=== PATIENT | female | born 1960 ===

== ENCOUNTER 2017-10-09 10:34 | Emergency (ER) | payer MEDICAID ==
[2017-10-09 11:03] VITALS: BP 150/86; PULSE 88; RESP 20; TEMP 98.1; O2SAT 98
[2017-10-09] MEDS ORDERED: Lidocaine 5% Patch TD STA (11:27)
[2017-10-09] MEDS ORDERED: Lidocaine 5% Patch TD ONE (11:46)
--- NOTE | 2017-10-09 12:14 | RAD ---
PROCEDURE: Lumbar spine 10/09/2017 HISTORY: Atraumatic back pain radiating to left leg COMPARISON: No prior study available comparison. FINDINGS: BONES: No acute compression fractures nor retropulsed fragments. Vertebral bodies exhibit normal stature. There is minimal subclinical dextroscoliosis Vertebral bodies otherwise exhibit normal alignment DISC SPACES: . There is disc space narrowing and vacuum disc phenomena L5-S1 level. Mild endplate eburnation with small marginal anterior osteophyte formation. Small marginal anterior osteophytes are seen at the L3-L4 and to a lesser degree L4-L5 levels. . Facet joints are slightly hypertrophic L5-S1 through the L3-L4 levels in decreasing order of severity and OTHER FINDINGS: None. IMPRESSION: No acute fractures. Degenerative spondylosis L5-S1 level to a lesser degree on L4 L 5 and L3-L4 levels as detailed above.
--- NOTE | 2017-10-09 12:40 | C.PDOC ---
History Of Present Illness 56 y/o female presents to the ER complaining of lower back pain which has been present for the past 3 weeks. Patient states that the pain radiates down the left leg. Patient reports that she was cleaning her house and she may have overworked herself. Patient denies having abdominal pain, hematuria, and dysuria. Time Seen by Provider: 10/09/17 11:14 Chief Complaint (Nursing): Back Pain History Per: Patient History/Exam Limitations: no limitations Onset/Duration Of Symptoms: Days Current Symptoms Are (Timing): Still Present Severity: Moderate Past Medical History Reviewed: Historical Data, Nursing Documentation, Vital Signs Vital Signs: Last Vital Signs Temp 98.1 F 10/09/17 10:58 Pulse 88 10/09/17 10:58 Resp 20 10/09/17 10:58 BP 150/86 10/09/17 10:58 Pulse Ox 98 10/09/17 12:56 - Medical History PMH: HTN, Hypercholesterolemia Other Surgeries: Hx of surgeries Family History: States: No Known Family Hx - Social History Hx Alcohol Use: Yes Hx Substance Use: No - Immunization History Hx Tetanus Toxoid Vaccination: No Hx Influenza Vaccination: Yes Hx Pneumococcal Vaccination: No Review Of Systems Except As Marked, All Systems Reviewed And Found Negative. Gastrointestinal: Negative for: Abdominal Pain Genitourinary: Negative for: Dysuria, Hematuria Musculoskeletal: Positive for: Back Pain (lower back pain) Physical Exam - Physical Exam Appears: Non-toxic, No Acute Distress Skin: Normal Color, Warm, Dry Head: Atraumatic, Normacephalic Eye(s): bilateral: Normal Inspection Nose: Normal Oral Mucosa: Moist Neck: Supple Chest: Symmetrical Cardiovascular: Rhythm Regular Respiratory: Normal Breath Sounds, No Rales, No Rhonchi, No Wheezing Back: Paraspinal Tenderness Neurological/Psych: Oriented x3, Normal Speech ED Course And Treatment O2 Sat by Pulse Oximetry: 98 (RA) Pulse Ox Interpretation: Normal - Other Rad X-Ray- Lumbar Spine X-Ray: Viewed By Me, Read By Radiologist Interpretation: PROCEDURE: Lumbar spine 10/09/2017. HISTORY: Atraumatic back pain radiating to left leg. COMPARISON: No prior study available comparison. FINDINGS: BONES: No acute compression fractures nor retropulsed fragments. Vertebral bodies exhibit normal stature. There is minimal subclinical dextroscoliosis Vertebral bodies otherwise exhibit normal alignment. DISC SPACES: . There is disc space narrowing and vacuum disc phenomena L5-S1 level. Mild endplate eburnation with small marginal anterior osteophyte formation. Small marginal anterior osteophytes are seen at the L3-L4 and to a lesser degree L4-L5 levels. . Facet joints are slightly hypertrophic L5-S1 through the L3-L4 levels in decreasing order of severity and. OTHER FINDINGS: None. IMPRESSION: No acute fractures. Degenerative spondylosis L5-S1 level to a lesser degree on L4 L 5 and L3-L4 levels as detailed above. Progress Note: Patient has been treated with Toradol IM, Valium PO, and Lidoderm Patch. On re-evaluation patient feels better and is stable to be d/c home with PMD Pain management follow up. Disposition - Disposition Referrals: Young Lind MD [Staff Provider] - Ronen Hood MD [Staff Provider] - Disposition: HOME/ ROUTINE Disposition Time: 12:52 Condition: STABLE Additional Instructions: Follow up with your PMD and pain management doctor within 1-2 days. Return to ED if feel worse. 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 - Scribe Statement The provider has reviewed the documentation as recorded by the uRddyibe Ana Hawthorne Provider Attestation All medical record entries made by the Scribe were at my direction and personally dictated by me. I have reviewed the chart and agree that the record accurately reflects my personal performance of the history, physical exam, medical decision making, and the department course for this patient. I have also personally directed, reviewed, and agree with the discharge instructions and disposition.
[2017-10-09] MEDS ORDERED: Dexamethasone 4 mg/1 ml IM STA (12:51)
[2017-10-09] MEDS ORDERED: Dexamethasone 4 mg/1 ml ONE (13:00)
== END 2017-10-09 13:03 | disposition home or self-care (01) ==
LOC: C.ER 10:34
DX: M54.32 Sciatica, left side (principal)
CPT/HCPCS: 72100; 96372; 99283; J1100; J1885

== ENCOUNTER 2017-11-06 08:15 | Day surgery (SDC) | payer MEDICAID ==
[2017-11-06] MEDS ORDERED: Lactated Ringer's 1,000 ML IV ONE (10:22)
[2017-11-06] MEDS ORDERED: Propofol 10 mg/ml Inj (20 ML) ONE ×2 (10:26→10:54)
[2017-11-06] MEDS ORDERED: Lidocaine Hydrochloride 5 ML INJ ONE (10:26)
[2017-11-06] MEDS ORDERED: Lidocaine Hydrochloride 10 ML INJ ONE (10:54)
[2017-11-06 11:01] VITALS: TEMP 97.3
[2017-11-06 11:06] VITALS: PULSE 78; O2SAT 98
[2017-11-06 11:44] VITALS: BP 122/68; RESP 16
== END 2017-11-06 11:45 | disposition home or self-care (01) ==
LOC: C.ENDO 08:15
PROVIDERS: ATTEND Internal Medicine Gastroenterology
DX: Z12.11 Encounter for screening for malignant neoplasm of colon (principal); K64.0 First degree hemorrhoids; I10 Essential (primary) hypertension; E78.5 Hyperlipidemia, unspecified; E11.9 Type 2 diabetes mellitus without complications
CPT/HCPCS: 82948; G0121; J2704; J7120

== ENCOUNTER 2018-07-12 09:11 | Outpatient (CLI) | payer MEDICAID | END 2018-07-12 09:12 | disposition home or self-care (01) | LOC: C.DEXAIC 09:12 ==

== ENCOUNTER 2018-07-24 14:27 | Outpatient (CLI) | payer MEDICAID | END 2018-07-24 14:28 | disposition home or self-care (01) | LOC: C.MAMMO 14:28 | DX: Z12.31 Encounter for screening mammogram for malignant neoplasm of breast (principal) ==